=== PATIENT | male | born 1935 | race Caucasian/White ===

== ENCOUNTER 2016-11-26 09:43 | Emergency (ER) | payer OTHER ==
[2016-11-26 09:56] VITALS: RESP 18; O2SAT 96
[2016-11-26] MEDS ORDERED: TDAP ADULT 0.5 ML INJ (BOOSTRIX) IM ONE (10:15)
--- NOTE | 2016-11-26 10:17 | EDPHY ---
H & P Stated Complaint: Tripped,fell. Sent by PCPs office for sutures to face;no LOC HPI/ROS: CHIEF COMPLAINT: Fall, facial laceration HISTORY OF PRESENT ILLNESS: Patient was walking in his yd this morning when he was attempting to mow the lawn. He tripped and fell, landing on his face. He denies any loss of conscious or headache. He sustained lacerations to the forehead, nasal bridge in above the upper lip. He has no complaints of pain other than the site of the lacerations. He has no neck pain or stiffness. No nausea or vomiting. No changes in vision. No chest or back pain or injuries. He did report injury to the right hand, but has no complaints for this and does not want this evaluated. The pain of the skin is minimal. 0 at rest. No modifying factors for this. No other associated complaints or modifying factors. Not sure when her last tetanus shot was administered. REVIEW OF SYSTEMS: Ten systems reviewed and are negative unless otherwise noted in the HPI PAST MEDICAL HISTORY: Reviewed, no use of blood thinners SOCIAL HISTORY: Nonsmoker. Retired FAMILY HISTORY: Noncontributory EXAMINATION General Appearance: Alert, no distress Head: normocephalic. Lacerations to the forehead and nasal bridge as below. No Spivey sign. No raccoon eyes. No rhinorrhea Eyes: Pupils equal and round, no conjunctival pallor or injection ENT, Mouth: Mucous membranes moist. Airway widely patent Neck: Normal inspection, supple, non-tender Respiratory: Lungs are clear to auscultation. No wheezing, rhonchi or crackles Cardiovascular: Regular rate and rhythm. No murmur. Pulses intact distally. Gastrointestinal: Abdomen is soft and nontender Back: non-tender, no bony abnormalities Neurological: GCS 15. Cranial nerves 2-12 grossly intact. A&O, nonfocal, normal gait Skin: Warm and dry, no rash. Curvilinear laceration of the forehead that is approximately 3 cm in length. There is some avulsion of the soft tissue surrounding this. There is abrasions surrounding this. There is also a 1 cm curvilinear laceration on the nasal bridge. No obvious exposure of the cartilage or underlying bone. There is a superficial laceration above the upper lip over the philtrum. No involvement of the vermilion border. Extremities: Nontender, no pedal edema Psychiatric: Mood and affect normal DIFFERENTIAL DIAGNOSES: Including but not limited to intracranial hemorrhage, skull fracture, closed- head injury, concussion, contusion, lacerations, abrasions MDM: 10:15 a.m. Mechanical fall with closed head injury, forehead laceration nasal laceration. No headache. No neck pain or stiffness. Awake, alert and in no acute distress. CT scan of the head has been ordered. He is declining a CT scan of cervical spine. He is also declining x-ray of the right hand despite a bruise. 10:[address] Pride that the CT scan of the head does not reveal any acute findings. There are chronic changes as noted in the report. Proceed with anesthesia, irrigation closure of the lacerations. 12:30 p.m. Complex laceration of the forehead and simple laceration of the nasal bridge been repaired without complication. Tolerated well. No complication. Discussed discharge home with return to emergency department precautions for any headache, dizziness, vision change, vomiting. He has contact his primary care physician today for wound recheck in 2 days. He is to return here or primary care physician in 5-7 days for suture removal. He and his spouse are comfortable with this plan and he is discharged home in stable condition. PROCEDURE: Laceration repair #1, forehead Consent: Verbal Location: Forehead Length of repair: 3 cm, curvilinear with abrasion and avulsion Complexity: Complex Layer involvement: Single Anesthesia: Local, 1% lidocaine with epinephrine, 8 mL Irrigation: Extensive Debridement: Minimal Procedure description: Following good anesthesia, the wound was copiously irrigated. Wound bed was explored and there is no foreign body noted. There is no exposure of the frontalis muscle. Minimal excisional debridement performed. Wound borders were approximated well with good hemostasis. Tolerated well without complication. Suture/Staple material: 6-0 Prolene, 10 simple interrupted sutures Wound care: Routine as discussed Suture/Staple removal: 5-7 Days PROCEDURE: Laceration repair, #2 nasal bridge Consent: Verbal Location: Nasal bridge Length of repair: 1.5 cm, curvilinear Complexity: Simple Layer involvement: Single Anesthesia: Local, 1% lidocaine without epinephrine, 5 mL Irrigation: Extensive Debridement: None Procedure description: Following good anesthesia, the wound was copiously irrigated. Wound bed was explored and there is no foreign body noted. No obvious exposure to the cartilage or nasal bone Wound borders were approximated well with good hemostasis. Tolerated well without complication. Suture/Staple material: 6-0 Prolene, 6 simple interrupted sutures Wound care: Routine as discussed Suture/Staple removal: 5-7 Days SUPERVISION: Shared visit with Dr. Warner Source: Patient, Family Exam Limitations: No limitations - Personal History Current Tetanus Diphtheria and Acellular Pertussis (TDAP): Yes - Medical/Surgical History Other PMH: thyroid. HTN - Social History Smoking Status: Never smoked Constitutional: Initial Vital Signs Temperature (C) 98.2 F 11/26/16 09:52 Heart Rate 104 H 11/26/16 09:52 Respiratory Rate 18 11/26/16 09:52 Blood Pressure 156/104 H 11/26/16 09:52 O2 Sat (%) 96 11/26/16 09:52 O2 Delivery Mode Room Air Allergies/Adverse Reactions: No Known Allergies Allergy (Unverified 11/26/16 09:50) Home Medications: Medication Instructions Recorded Amlodipine Besylate [Norvasc] 5 mg PO 11/26/16 Aspirin [Aspirin 81mg (*)] 243 mg PO DAILY 11/26/16 Colesevelam HCl [Welchol (*)] 625 mg PO 11/26/16 Levothyroxine [Synthroid 100 mcg 100 mcg PO DAILY06 11/26/16 (*)] Lisinopril [Zestril 10 mg (*)] 10 mg PO 11/26/16 Medical Decision Making - Diagnostics Imaging Results: Imaging Impressions Head CT 11/26/16 10:15 Impression: 1. Moderate atrophy. 2. No hemorrhage, mass effect, or definite acute peripheral infarct. 3. 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 4. Soft tissue swelling over the left forehead without underlying abnormality. 5. Underlying dental disease. Findings discussed with Diego Clifford PAC at 10:54 hour, 11/26/2016. - Data Points Medications Given: Discontinued Medications Diphtheria/Tetanus/Acell Pertussis (Boostrix) 0.5 ml IM .ONCE ONE Stop: 11/26/16 10:16 Last Admin: 11/26/16 11:55 Dose: 0.5 ml Departure - Departure Disposition: Home, Routine, Self-Care Clinical Impression: Forehead laceration Qualifiers: Encounter type: initial encounter Qualified Code(s): S01.81XA - Laceration without foreign body of other part of head, initial encounter Nasal laceration Qualifiers: Encounter type: initial encounter Qualified Code(s): S01.21XA - Laceration without foreign body of nose, initial encounter Closed head injury Qualifiers: Encounter type: initial encounter Qualified Code(s): S09.90XA - Unspecified injury of head, initial encounter Condition: Good Instructions: Care For Your Stitches (ED), Laceration (ED), Concussion (ED), Head Injury (ED) Additional Instructions: 1. Neosporin or bacitracin to lacerations once daily 2. Keep wounds clean, dry and covered 3. Follow up with primary care physician in 1-2 days for wound check 4. Follow up with primary care physician or here in 5-7 days for suture removal 5. Return here for any worsening pain, changes in vision, vomiting Referrals: Franco Corbett MD [Primary Care Provider] - As per Instructions
[2016-11-26 12:59] VITALS: BP 171/98; PULSE 106; TEMP 98.1
== END 2016-11-26 12:59 | disposition home or self-care (01) ==
PROC: 0HQ1XZZ Repair Face Skin, External Approach (ICD-10-PCS; principal; 2016-11-26)
DX: S01.21XA Laceration without foreign body of nose, initial encounter (principal); S01.81XA Laceration without foreign body of other part of head, initial encounter; I10 Essential (primary) hypertension; Z23 Encounter for immunization; Z79.82 Long term (current) use of aspirin; W01.0XXA Fall on same level from slipping, tripping and stumbling without subsequent striking against object, initial encounter; Y92.017 Garden or yard in single-family (private) house as the place of occurrence of the external cause; Y99.8 Other external cause status; Y93.01 Activity, walking, marching and hiking

== ENCOUNTER 2017-02-24 13:27 | Emergency (ER) | payer OTHER ==
[2017-02-24 13:37] VITALS: O2SAT 95
--- NOTE | 2017-02-24 13:55 | EDPHY ---
H & P Stated Complaint: epistaxis Source: Patient Exam Limitations: No limitations - Personal History Current Tetanus/Diphtheria Vaccine: Yes - Medical/Surgical History Hx Asthma: No Hx Chronic Respiratory Disease: No Hx Diabetes: No Hx Cardiac Disease: No Hx Renal Disease: No Hx Cirrhosis: No Hx Alcoholism: No Hx HIV/AIDS: No Hx Splenectomy or Spleen Trauma: No Other PMH: thyroid,. HTN. - Social History Smoking Status: Never smoked Time Seen by Provider: 02/24/17 13:55 HPI/ROS: HPI: This 82-year-old male who presents with Chief Complaint: Nosebleed Location: Nose Quality: Bleeding Duration: Since 03/18 this am Signs and Symptoms: No trauma, no injury, no sinus pressure, no nasal congestion, no weakness, no shortness of breath, no chest pain Timing: Sudden Severity: Mild Context: Patient reports that he was at a local fast food restaurant eating breakfast with his friends around 10:30 a.m. when he stood up from the table and blood started dripping out from his right nostril. He applied direct pressure with transient relief of bleeding. He does report that he has been sniffing feeling dryness over the last few days. He fell November 26 and sustained the laceration to the top of his forehead and bridge of nose; sutures were placed and wounds have essentially healed. He takes baby aspirin daily. Denies any excessive bruising/bleeding gums. Modifying Factors: Direct pressure with transient relief Comment: ROS: see HPI Constitutional: No fever, no chills, no weight loss Eyes: No blurred vision Respiratory: No shortness of breath, no cough Cardiovascular: No chest pain Gastrointestinal: No nausea, no vomiting, no diarrhea Genitourinary: No dysuria Extremities: No myalgias Neurologic: No weakness, no numbness Skin: No rashes Hematologic: No bruising, no bleeding MEDICAL/SURGICAL/SOCIAL HISTORY: Social history: CONSTITUTIONAL: Pleasant well-appearing elderly white male, awake and alert, no obvious distress HEENT: Atraumatic and normocephalic, PERRL, EOMI. Tympanic membranes clear. Nares patent; right Nare 10 o'clock position shows small active bleeding; no mucosal edema. No septal hematoma. Oropharynx clear, no exudate and moist pink mucosa. Airway patent. No lymphadenopathy. No meningismus. Cardiovascular: Normal S1/S2, regular rate, regular rhythm, without murmur rub or gallop. PULMONARY/CHEST: Symmetrical and nontender. Clear to auscultation bilaterally. Good air movement. No accessory muscle usage. ABDOMEN: Soft, nondistended, nontender, no rebound, no guarding, no peritoneal signs, no masses or organomegaly. No CVAT. EXTREMITIES: 2/2 pulses, no deformities, no clubbing, no cyanosis or edema. NEUROLOGICAL: no focal neuro deficits. GCS 15. SKIN: Warm and dry, no erythema. no rash. Good capillary refill. (Lore Nagel) Constitutional: Initial Vital Signs Temperature (C) 36.4 C 02/24/17 13:35 Heart Rate 92 02/24/17 13:35 Respiratory Rate 18 02/24/17 13:35 Blood Pressure 163/100 H 02/24/17 13:35 O2 Sat (%) 95 02/24/17 13:35 O2 Delivery Mode Room Air Allergies/Adverse Reactions: No Known Allergies Allergy (Verified 02/24/17 13:33) Home Medications: Medication Instructions Recorded Amlodipine Besylate [Norvasc] 5 mg PO 11/26/16 Aspirin [Aspirin 81mg (*)] 243 mg PO DAILY 11/26/16 Colesevelam HCl [Welchol (*)] 625 mg PO 11/26/16 Levothyroxine [Synthroid 100 mcg 100 mcg PO DAILY06 11/26/16 (*)] Lisinopril [Zestril 10 mg (*)] 10 mg PO 11/26/16 Fish Oil 1,000 mg Capsule 02/24/17 Medical Decision Making ED Course/Re-evaluation: Oxymetazoline sprayed in each nostril; with direct pressure and no relief of bleeding rhino rocket placed in right nare for right anterior epistaxis Mild normocytic anemia noted; coags normal Monitored for 2 hours; with resolution of bleeding. Will leave rhino rocket in place until ENT follow-up. (Lore Nagel) Differential Diagnosis: Differential diagnosis includes but is not limited to coagulopathy, digital trauma, allergic rhinitis, dryness. (Lore Nagel) Other Provider: The patient was evaluated and managed by the Physician Equipment Analyst. My co- signature indicates that I have reviewed this chart and I agree with the findings and plan of care as documented. I am the secondary supervising physician. (Jaelyn Bowen) - Data Points Laboratory Results: Laboratory Results 02/24/17 14:40 Medications Given: Discontinued Medications Oxymetazoline HCl (Afrin Nasal [place]) 2 sprays EACHNARE EDNOW ONE Stop: 02/24/17 14:06 Last Admin: 02/24/17 14:28 Dose: 2 sprays Departure - Departure Disposition: Home, Routine, Self-Care Clinical Impression: Acute anterior epistaxis Condition: Good Instructions: Nosebleed (ED) Additional Instructions: Please leave rhino rocket in place until follow-up with ENT. Your labs today are unremarkable. Referrals: Franco Corbett MD [Primary Care Provider] - As per Instructions Chadd Baker MD [Medical Doctor] - 1-2 days without fail
[2017-02-24] MEDS: OXYMETAZOLINE 30 ML NASAL SPRAY EACHNARE ONE (14:28)
[2017-02-24 14:56] LABS: % IMMATURE GRANULYOCYTES 0.6 % (0.0-1.1); ABSOLUTE IMMATURE GRANULOCYTES 0.04 10^3/uL (0.00-0.10); ADD DIFF? NO; ADD MORPH? NO; ADD SCAN? NO; ATYPICAL LYMPHOCYTE FLAG 0 (0-99); FRAGMENT RBC FLAG 0 (0-99); HEMATOCRIT 33.2 % (40.0-51.0); HEMOGLOBIN 11.3 g/dL (13.7-17.5); LEFT SHIFT FLG 0 (0-99); LIPEMIA HEMOLYSIS FLAG 90 (0-99); MEAN CELL HEMOGLOBIN 31.4 pg (27.9-34.1); MEAN CELL VOLUME 92.2 fL (81.5-99.8); MEAN PLATELET VOLUME 9.1 fL (8.7-11.7); PLATELET CLUMPS FLAG 20 (0-99); PLATELET COUNT 175 10^3/uL (150-400); RED CELL DISTRIBUTION WIDTH 13.6 % (11.5-15.2)
[2017-02-24 15:06] LABS: APTT 25.2 SEC (23.0-38.0); INR 1.1 (0.83-1.16); PROTIME(PATIENT) 14.1 SEC (12.0-15.0)
[2017-02-24 16:03] VITALS: BP 151/91; PULSE 112; RESP 12; TEMP 98.1
== END 2017-02-24 16:00 | disposition home or self-care (01) ==
PROC: 2Y41X5Z Packing of Nasal Region using Packing Material (ICD-10-PCS; principal; 2017-02-24)
DX: R04.0 Epistaxis (principal); I10 Essential (primary) hypertension; Z79.82 Long term (current) use of aspirin